=== PATIENT | male | born 1945 | race Caucasian/White ===

== ENCOUNTER 2025-05-23 16:29 | Observation (INO) ==
[~2025-05-23 16:29] MED LIST: SUPRANE IN ONE
[2025-05-23] MEDS ORDERED: ZOFRAN INJ 4 MG VIAL ONE (17:03)
[2025-05-23] MEDS ORDERED: MORPHINE SULFATE INJ 4 MG ONE (17:03)
[2025-05-23] MEDS ORDERED: NS 1,000 ML IV 1,000 ML ONE (17:03)
[2025-05-23] MEDS: MORPHINE SULFATE INJ 4 MG IVP ONE (17:07)
[2025-05-23] MEDS: ZOFRAN INJ 4 MG VIAL IVP ONE (17:07)
[2025-05-23] MEDS: NS 1,000 ML IV 1,000 ML IV ONE (17:09)
[2025-05-23 17:26] LABS: CREATININE 1.24 mg/dL (0.70-1.30); eGFR NON BLACK RACES 60 (>60)
[2025-05-23 17:28] LABS: MEAN PLATELET VOLUME 9.5 fL (7.4-11.0); RED CELL DISTRIBUTION WIDTH 13.7 % (11.6-16.5)
--- NOTE | 2025-05-23 18:33 | DR.H&P ---
H&P History & Physical for Day of: H&P Date: 05/23/25 Chief Complaint Chief Complaint: Acute onset of painful abdomen at umbilicus History of Present Illness History of Present Illness: 79-year-old male who was working on his barn and doing a lot of strenuous activity and had acute onset of abdominal pain in his umbilicus with a mass effect at the umbilicus which could not be reduced in the emergency room. CT scan consistent with incarcerated umbilical hernia. Very tender very painful. Patient has past medical history of hypertension, hyperlipidemia, GE reflux and some difficulty urinating. Past Medical History Past Medical History: Alzheimers, Dyslipidemia, GERD and Hypertension Additional Medical History: Some difficulty urinating Past Surgical History Surgical History: Ortho Surgery and Other Family History Family Medical History: Diabetes Mellitus, Cancer, [place], Coronary Artery Disease and Hypertension Social History Does patient currently use any type of tobacco product: No Have you used tobacco products in the last 12 months: No Type of Tobacco Use: None Does any household member use tobacco: No Alcohol Use: None Medications Home Medications: Home Medications Medication Instructions Recorded Confirmed Type clotrimazole 1 % topical cream 1 applic topical QDAY 0 05/23/25 05/23/25 History cyclobenzaprine 5 mg tablet 5 mg PO QPM PRN 05/23/25 0 05/23/25 History donepezil 5 mg tablet 5 mg PO QDAY 05/23/25 History isotretinoin 30 mg capsule 30 mg PO QDAY 05/23/2505/10 History levocetirizine 5 mg tablet 5 mg PO QDAY 05/23/2505/23 History meloxicam 15 mg tablet 15 mg PO QDAY 05/23/2505/23 History pantoprazole 40 mg tablet,delayed 40 mg PO BID 5 05/23/25 History release simvastatin 40 mg tablet 40 mg PO QPM 05/23/25 History tamsulosin 0.4 mg capsule 0.4 mg PO DAILY 05/23/2505/10 History Allergies Allergies Allergy/AdvReac Type Severity Reaction Status Date / Time No Known Allergies Allergy Verified 05/23/25 16:39 Labs 05/23/25 16:50 05/23/25 16:50 Labs: Laboratory WBC 9.4 X10^3/uL (3.6-10.0) 05/23/25 16:50 RBC 5.67 X10^6/uL (4.7-6.0) 05/23/25 16:50 Hgb 16.8 g/dL (13.5-18.0) 05/23/25 16:50 Hct 49.9 % (42.0-54.0) 05/23/25 16:50 MCV 88.0 fL (80.0-100.0) 05/23/25 16:50 MCH 29.6 pg (27.0-34.0) 05/23/25 16:50 MCHC 33.6 g/dL (33.0-35.0) 05/23/25 16:50 RDW 13.7 % (11.6-16.5) 05/23/25 16:50 Plt Count 167 X10^3/uL (150.0-450.0) 05/23/25 16:50 MPV 9.5 fL (7.4-11.0) 05/23/25 16:50 Neut % (Auto) 53.2 % (42.0-75.0) 05/23/25 16:50 Lymph % (Auto) 32.8 % (21.0-51.0) 05/23/25 16:50 [place] % (Auto) 8.6 % (0.0-13.0) 05/23/25 16:50 Eos % (Auto) 5.0 % (0.9-2.9) H 05/23/25 16:50 Baso % (Auto) 0.4 % (0.2-1.0) 05/23/25 16:50 Neut # (Auto) 5.0 x10^3/uL (2.2-4.8) H 05/23/25 16:50 Lymph # (Auto) 3.1 X10^3/uL (1.3-2.9) H 05/23/25 16:50 [place] # (Auto) 0.8 x10^3/uL (0.3-0.8) 05/23/25 16:50 Eos # (Auto) 0.5 x10^3/uL (0.0-0.2) H 05/23/25 16:50 Baso # (Auto) 0.0 X10^3/uL (0.0-0.1) 05/23/25 16:50 Absolute Nucleated RBC 0.1 /100WBC 05/23/25 16:50 Sodium 138 mmol/L (136-145) 05/23/25 16:50 Corrected Sodium TNP 05/23/25 16:50 Potassium 4.1 mmol/L (3.5-5.1) 05/23/25 16:50 Chloride 103 mmol/L (98-107) 05/23/25 16:50 Carbon Dioxide 28.0 mmol/L (21-32) 05/23/25 16:50 BUN 17 mg/dL (7-18) 05/23/25 16:50 Creatinine 1.24 mg/dL (0.70-1.30) 05/23/25 16:50 Est GFR (MDRD) Af Amer > 60 (>60) 05/23/25 16:50 Est GFR (MDRD) Non-Af 60 (>60) 05/23/25 16:50 Glucose 103 mg/dL (65-99) H 05/23/25 16:50 Calcium 9.0 mg/dL (8.5-10.1) 05/23/25 16:50 Corrected Calcium TNP 05/23/25 16:50 Total Bilirubin 0.50 mg/dL (0.2-1.0) 05/23/25 16:50 AST 28 Units/L (15-37) 05/23/25 16:50 ALT 28 Units/L (12-78) 05/23/25 16:50 Alkaline Phosphatase 90 Units/L (46-116) 05/23/25 16:50 Total Protein 8.4 g/dL (6.4-8.2) H 05/23/25 16:50 Albumin 4.3 g/dL (3.4-5.0) 05/23/25 16:50 Globulin 4.1 g/dL (2.5-4.5) 05/23/25 16:50 Albumin/Globulin Ratio 1.0 Ratio (1.1-2.1) L 05/23/25 16:50 Amylase 63 Units/L (25-115) 05/23/25 16:50 Lipase 36 Units/L (16-77) 05/23/25 16:50 Review of Systems Constitutional: See HPI Eyes: No Symptoms Reported ENT: No Symptoms Reported Cardiovascular: No Symptoms Reported Gastrointestinal: See HPI Genitourinary: See HPI Musculoskeletal: No Symptoms Reported Skin: No Symptoms Reported Neurological: No Symptoms Reported Physical Exam Vital Signs: Vital Signs Temperature 97.7 F Pulse Rate 79 Pulse Rate 91 Pulse Rate 87 Pulse Rate 84 Pulse Rate 93 Respiratory Rate 15 Respiratory Rate 23 Respiratory Rate 18 Respiratory Rate 25 Blood Pressure 142/88 Blood Pressure 152/99 Blood Pressure 187/108 O2 Sat by Pulse Oximetry 94 O2 Sat by Pulse Oximetry 94 O2 Sat by Pulse Oximetry 100 O2 Sat by Pulse Oximetry 100 O2 Sat by Pulse Oximetry 98 Oriented: Normal, Time, Person and Place Eyes: Normal Ear: Normal Nose: Normal Throat: Normal Respiratory: Clear Throughout Cardiovascular: Normal : Normal Auscultation: Bowel Sounds: Normal Palpation: Other (Mildly distended abdomen with incarcerated umbilical hernia with some dusky discoloration of the skin here.) Tenderness: Periumbilical (Very tender over this mass effect in the umbilicus in the periumbilical area. I cannot reduce it because of the significant pain he has encountered) Skin: Other (Dusky discoloration at the umbilicus with a very tender mass effect here approximately 3 cm in diameter) Musculoskeletal: Normal Psychiatric: Normal Mood Description: Calm Affect: Normal Speech Pattern: Clear and Appropriate Assessment/Plan (1) Incarcerated umbilical hernia: Status: Acute Plan: Patient has been n.p.o. since lunch. Will plan urgent repair of his incarcerated umbilical hernia. Most likely will require mesh to repair this. I discussed the procedure with the patient and his . They agreed to proceed. Understand the potential risk and benefits. (2) Hypertension: Status: Acute (3) Hyperlipidemia: Status: Acute (4) Gastroesophageal reflux disease: Status: Acute (5) Difficulty urinating: Status: Acute
[2025-05-23] MEDS: LR 1,000 ML IV 700 ML IV PRN (19:45)
[2025-05-23] MEDS: VERSED ONE (19:49)
[2025-05-23] MEDS: FENTANYL VIAL INJ 100 mcg ONE (19:49)
[2025-05-23] MEDS: LR 1,000 ML IV 1,000 ML IV ONE (19:52)
--- NOTE | 2025-05-23 19:57 | DR.ABDMALE ---
HPI Time seen Time Seen by Provider: 05/23/25 16:52 PCP Primary Care Physician: Zeina HPI comment HPI Comment: Patient had intense abdominal pain on his navel after lunch today. Patient states it has been getting worse since lunchtime. Patient states he feels like it radiates throughout the abdomen now. Denies any nausea or vomiting, diarrhea or constipation. Patient states he has been healthy and denies any fever Complaint Chief Complaint:: Patient states that after eating lunch today he started having intense abdominal pain around his navel. He states that the pain has progressively gotten worse. He describes the pains as shooting pains. Mode of arrival Mode of Arrival: Wheelchair Timing Onset of Chief Complaint: 05/23/25 PMH PMH Past Surgical History: Yes Surgical History: Ortho Surgery and Other Past Surgical History Comment: Neck Family History History of Family Medical Conditions: Yes Family Medical History: Diabetes Mellitus, Cancer, [place], Coronary Artery Disease and Hypertension Social History Does patient currently use any type of tobacco product: No Have you used tobacco products in the last 12 months: No Type of Tobacco Use: None Does any household member use tobacco: No Alcohol Use: None Do you use any recreational Drugs:: No Lives With: Family Lives Where: Home Infectious screening In the last 2 months have you had wt loss of >10#?: NO Have you had fever, night sweats or hemotysis?: No Have you traveled outside the country in the last 6 months?: No Isolation: Standard ROS Review of Systems Constitutional: No Symptoms Reported Eyes: No Symptoms Reported ENTM: No Symptoms Reported Respiratoy: No Symptoms Reported; negative Short of Breath or Wheezing Cardiovascular: No Symptoms Reported; negative Chest Pain, Edema, Palpitations or Syncope Gastrointestinal/Abdominal: See HPI and Abdominal Pain; negative Constipation, Diarrhea, Nausea or Vomiting Genitourinary: No Symptoms Reported Neurological: No Symptoms Reported Musculoskeletal: No Symptoms Reported Integumentary: No Symptoms Reported Hematologic/Lymphatic: No Symptoms Reported Endocrine: No Symptoms Reported Psychiatric: No Symptoms Reported All Other Systems: Reviewed and Negative PE Vital Signs Vital Signs: Temp Pulse Resp BP Pulse Ox O2 Del Method 05/23/25 19:45 76 25 H 98 05/23/25 19:31 86 44 H 05/23/25 19:31 164/98 05/23/25 19:30 81 26 H 05/23/25 19:15 73 20 98 05/23/25 19:00 78 23 96 05/23/25 19:00 134/90 05/23/25 18:49 129/87 05/23/25 18:49 83 18 98 05/23/25 18:45 76 95 05/23/25 18:30 79 26 H 97 05/23/25 18:29 81 17 92 L 05/23/25 18:29 187/112 05/23/25 18:15 100 H 90 L 05/23/25 18:02 82 94 L 05/23/25 17:45 79 22 94 L 05/23/25 17:30 79 15 94 L 05/23/25 17:30 142/88 05/23/25 17:23 91 H 23 94 L 05/23/25 17:07 18 05/23/25 17:00 87 100 05/23/25 17:00 152/99 05/23/25 16:59 84 100 05/23/25 16:35 97.7 F 93 H 25 H 187/108 98 Room Air General Limitations: No Limitations General Appearance: Alert and In No Apparent Distress Head Head Exam: Normal Inspection Eyes Eye exam: Normal Appearance ENT ENT Exam: Normal Exam Neck Neck Exam: Normal Inspection Chest Chest Inspection: Normal Inspection Respiratory Respiratory Exam: Normal Lung Sounds Bilat Cardiovascular Cardiovascular Exam: Regular Rate and Normal Rhythm Abdominal Exam Abdominal Exam: Normal Bowel Sounds, Soft, Tenderness (Tenderness on umbilical hernia), Guarding and Hernia (Umbilical hernia incarcerated and tender to palpation); negative Distention, Rebound or Rigidity Rectal Rectal Exam: Deferred Back Back Exam: Normal Inspection Extremeties Extremities Exam: Normal Inspection Exam: Male: Deferred Neurologic Neurological Exam: Alert and Oriented X3 Psychiatric Psychiatric Exam: Normal Affect and Normal Mood Skin Skin Exam: Warm, Dry, Intact and Normal Color COURSE Treatment Treatment: Incarcerated and likely strangulated umbilical hernia. Discussed with surgeon. Surgeon taking patient to the OR directly from the ER and he will admit to hospital after surgery. Consultation Consultation Comments: Discussed case and results of workup with Dr. Castaneda, surgeon, and he plans on taking patient to surgery as soon as he finishes the current procedure he is not. ROR Labs Reviewed Laboratory Results Reviewed?: Yes 05/23/25 16:50 05/23/25 16:50 Laboratory: WBC 9.4 X10^3/uL (3.6-10.0) 05/23/25 16:50 RBC 5.67 X10^6/uL (4.7-6.0) 05/23/25 16:50 Hgb 16.8 g/dL (13.5-18.0) 05/23/25 16:50 Hct 49.9 % (42.0-54.0) 05/23/25 16:50 MCV 88.0 fL (80.0-100.0) 05/23/25 16:50 MCH 29.6 pg (27.0-34.0) 05/23/25 16:50 MCHC 33.6 g/dL (33.0-35.0) 05/23/25 16:50 RDW 13.7 % (11.6-16.5) 05/23/25 16:50 Plt Count 167 X10^3/uL (150.0-450.0) 05/23/25 16:50 MPV 9.5 fL (7.4-11.0) 05/23/25 16:50 Neut % (Auto) 53.2 % (42.0-75.0) 05/23/25 16:50 Lymph % (Auto) 32.8 % (21.0-51.0) 05/23/25 16:50 [place] % (Auto) 8.6 % (0.0-13.0) 05/23/25 16:50 Eos % (Auto) 5.0 % (0.9-2.9) H 05/23/25 16:50 Baso % (Auto) 0.4 % (0.2-1.0) 05/23/25 16:50 Neut # (Auto) 5.0 x10^3/uL (2.2-4.8) H 05/23/25 16:50 Lymph # (Auto) 3.1 X10^3/uL (1.3-2.9) H 05/23/25 16:50 [place] # (Auto) 0.8 x10^3/uL (0.3-0.8) 05/23/25 16:50 Eos # (Auto) 0.5 x10^3/uL (0.0-0.2) H 05/23/25 16:50 Baso # (Auto) 0.0 X10^3/uL (0.0-0.1) 05/23/25 16:50 Absolute Nucleated RBC 0.1 /100WBC 05/23/25 16:50 Sodium 138 mmol/L (136-145) 05/23/25 16:50 Corrected Sodium TNP 05/23/25 16:50 Potassium 4.1 mmol/L (3.5-5.1) 05/23/25 16:50 Chloride 103 mmol/L (98-107) 05/23/25 16:50 Carbon Dioxide 28.0 mmol/L (21-32) 05/23/25 16:50 BUN 17 mg/dL (7-18) 05/23/25 16:50 Creatinine 1.24 mg/dL (0.70-1.30) 05/23/25 16:50 Est GFR (MDRD) Af Amer > 60 (>60) 05/23/25 16:50 Est GFR (MDRD) Non-Af 60 (>60) 05/23/25 16:50 Glucose 103 mg/dL (65-99) H 05/23/25 16:50 Calcium 9.0 mg/dL (8.5-10.1) 05/23/25 16:50 Corrected Calcium TNP 05/23/25 16:50 Total Bilirubin 0.50 mg/dL (0.2-1.0) 05/23/25 16:50 AST 28 Units/L (15-37) 05/23/25 16:50 ALT 28 Units/L (12-78) 05/23/25 16:50 Alkaline Phosphatase 90 Units/L (46-116) 05/23/25 16:50 Total Protein 8.4 g/dL (6.4-8.2) H 05/23/25 16:50 Albumin 4.3 g/dL (3.4-5.0) 05/23/25 16:50 Globulin 4.1 g/dL (2.5-4.5) 05/23/25 16:50 Albumin/Globulin Ratio 1.0 Ratio (1.1-2.1) L 05/23/25 16:50 Amylase 63 Units/L (25-115) 05/23/25 16:50 Lipase 36 Units/L (16-77) 05/23/25 16:50 Other Results Comments: CT abdomen and pelvis without contrast results not available at this time. Informed surgeon that this was taken so he can review when available. Opioid Opioid Risk Tool Total: 0 Total Score Risk Category: Low Risk Copyright: Gen PHELAN predicting aberrant behaviors Discharge Plan Diagnosis Discharge Problem: Incarcerated umbilical hernia, Strangulated umbilical hernia Discharge Plan Patient Disposition: ADMITTED INPATIENT Condition: Stable Prescriptions: No Action donepezil 5 mg tablet 5 mg PO QDAY meloxicam 15 mg tablet 15 mg PO QDAY simvastatin 40 mg tablet 40 mg PO QPM tamsulosin 0.4 mg capsule 0.4 mg PO DAILY pantoprazole 40 mg tablet,delayed release (DR/EC) 40 mg PO BID clotrimazole 1 % cream 1 applic TOPICAL QDAY cyclobenzaprine 5 mg tablet 5 mg PO QPM PRN isotretinoin 30 mg capsule 30 mg PO QDAY levocetirizine 5 mg tablet 5 mg PO QDAY Health Concerns: Post Hospitalization: new medications and changes needed to prevent readmission or further decline. Pt educated and given instructions on all concerns. Plan of Treatment: Continue with present treatment and follow up plan. Pt is to keep follow up appointment as instructed and take medications as ordered. Follow ups/Referrals Follow ups/Referrals: FROILAN FRAGOSO [Primary Care Provider, MEDICAL] - 3 days Instructions Stand Alone Forms: Find Help Web Site, Post Hospital Follow Up Care Print Language: SETSWANA
[2025-05-23] MEDS: ZOFRAN INJ 4 MG VIAL IVP PRN (20:00)
[2025-05-23] MEDS: PEPCID 20 MG VIAL IVP PRN (20:00)
[2025-05-23] MEDS: DIPRIVAN VIAL 20 ML ONE (20:02)
[2025-05-23] MEDS: ZOFRAN INJ 4 MG VIAL ONE (20:02)
[2025-05-23] MEDS: BRIDION ONE (20:02)
[2025-05-23] MEDS: TORADOL 30 MG VIAL ONE (20:02)
[2025-05-23] MEDS: OFIRMEV IV 1000 MG VIAL 1,000 MG/100 ML VIAL IV ONE (20:02)
[2025-05-23] MEDS: ZEMURON 100 MG VIAL ONE (20:02)
[2025-05-23] MEDS: VERSED IVP PRN (20:04)
[2025-05-23] MEDS: PEPCID 20 MG VIAL ONE (20:08)
--- NOTE | 2025-05-23 20:09 | EKG ---
Test Reason : pre-op surgery Blood Pressure : */* mmHG Vent. Rate : 82 BPM Atrial Rate : 82 BPM P-R Int : 170 ms QRS Dur : 90 ms QT Int : 358 ms P-R-T Axes : 39 -4 27 degrees QTc Int : 418 ms Normal sinus rhythm Minimal voltage criteria for LVH, may be normal variant ( R in aVL ) Borderline ECG No previous ECGs available Confirmed by Jerry Abrams MD ([id number]) on 05/24/2025 12:57:54 AM Referred By: Confirmed By: Jerry Abrams MD
[2025-05-23 20:10] LABS: BLOOD/HEMOGLOBIN,URINE NEGATIVE (NEGATIVE); LEUKOCYTE ESTERASE ,URINE NEGATIVE (NEGATIVE); NITRITES,URINE NEGATIVE (NEGATIVE)
[2025-05-23] MEDS: ANCEF VIAL 1 GRAM IV PRN (20:10)
[2025-05-23] MEDS: ANCEF VIAL 1 GRAM ONE (20:12)
[2025-05-23] MEDS: NS 100 ML IV 100 ML ONE (20:12)
[2025-05-23 20:14] LABS: APPEARANCE,URINE CLEAR (CLEAR)
[2025-05-23] MEDS: ZEMURON 100 MG VIAL IVP PRN (20:17)
[2025-05-23] MEDS: DIPRIVAN VIAL 170 ML IVP PRN (20:17)
[2025-05-23] MEDS: FENTANYL VIAL INJ 100 mcg IVP PRN (20:17)
[2025-05-23 20:18] LABS: SQUAMOUS EPITHELIAL CELL,UR NEGATIVE /HPF (NEGATIVE)
--- NOTE | 2025-05-23 20:20 | CT ---
EXAM: CT ABDOMEN AND PELVIS WITHOUT INTRAVENOUS CONTRAST HISTORY: Pain after eating lunch. TECHNIQUE: Spiral axial CT images are obtained through the abdomen and pelvis without the administration of intravenous contrast. Additional coronal and sagittal reformatted images are reconstructed. COMPARISON: None available. FINDINGS: GASTROINTESTINAL TRACT: There is a small hiatal hernia, measuring approximately 3.8 cm AP by 2.4 cm transverse by 2.9 cm CC. Axial image 20; coronal image 29. There is an approximately 2.4 cm transverse by 2.5 cm CC by 2.2 cm AP umbilical hernia containing a slightly thickened fluid-filled small bowel loop; cannot rule out early bowel strangulation in the appropriate clinical setting. Axial image 62; sagittal image 33. There is resultant high-grade small bowel obstruction at the level of the umbilical hernia, with 3.3 cm dilated fluid-filled small bowel loops proximal to the hernia and completely collapsed small bowel loops distal to the hernia. No evidence for pneumatosis intestinalis, portal venous air or free intraperitoneal air. Diffuse colonic diverticulosis, especially severe in the sigmoid region, without CT evidence for acute diverticulitis. No evidence for bowel herniation, bowel obstruction, or colitis. A normal-appearing appendix is seen. GENITOURINARY SYSTEM: The kidneys are unremarkable. There is no ureteral calculus or stigmata of obstructive uropathy. The urinary bladder is grossly unremarkable for a non-dedicated exam. BILIARY SYSTEM: There is cholelithiasis, consistent with sequela of chronic cholecystitis. Consider follow-up evaluation with HIDA scan to rule out cystic duct obstruction and acute cholecystitis as clinically warranted. CT ABDOMEN: Aortoiliac atherosclerotic disease, without aneurysm formation. The liver, spleen, pancreas, adrenal glands, and inferior vena cava are within normal limits for a noncontrast CT scan. There is no intra-abdominal or retroperitoneal lymphadenopathy, free fluid, or free air seen. No abdominal herniation is noted. CT PELVIS: No pelvic sidewall or inguinal lymphadenopathy is seen. No inguinal herniation is noted. No free fluid or free air is seen. BONES AND JOINTS: Severe multilevel DDD is seen in the distal thoracic spine marked by disc space narrowings and anterior beaking +/- bridging marginal osteophytosis. L4/5: Mild DDD marked by posterior disc space narrowing; approximately 4.4 mm (grade 1) spondylolisthesis secondary to severe bilateral hypertrophic facet joint DJD, with resultant bony neuroforaminal stenosis, lateral recess stenosis, and spinal canal stenosis with potential for L4 and L5 nerve root impingements. Sagittal image 30-45; axial image 53-57. L5/S1: Severe DDD marked by severe disc space narrowing, endplate sclerosis, and vacuum disc phenomenon. The visualized bony structures are otherwise within normal limits. LUNG BASES: There is an approximately 4.9 mm pleural-based noncalcified nodule in the anterior aspect of the superior segment of the right lower lobe in keeping with an intrapulmonary lymph node (axial image 3, lung windows). The lung bases are otherwise clear. There is severe coronary atherosclerosis (LAD). There is mild cardiomegaly with four-chamber enlargement. There is a partially imaged, at least 4.3 cm diameter, fusiform ascending thoracic aortic aneurysm. IMPRESSION: 1. Small hiatal hernia, measuring approximately 3.8 cm AP by 2.4 cm transverse by 2.9 cm CC. Axial image 20; coronal image 29. 2. Approximately 2.4 cm transverse by 2.5 cm CC by 2.2 cm AP umbilical hernia containing a slightly thickened fluid-filled small bowel loop; cannot rule out early bowel strangulation in the appropriate clinical setting. Axial image 62; sagittal image 33. 3. Resultant high-grade small bowel obstruction at the level of the umbilical hernia, with 3.3 cm dilated fluid-filled small bowel loops proximal to the hernia and completely collapsed small bowel loops distal to the hernia. 4. Diffuse colonic diverticulosis, especially severe in the sigmoid region, without CT evidence for acute diverticulitis. 5. No evidence for pneumatosis intestinalis, appendicitis, or colitis. 6. Cholelithiasis, consistent with sequela of chronic cholecystitis. Consider follow-up evaluation with HIDA scan to rule out cystic duct obstruction and acute cholecystitis as clinically warranted. 7. No evidence for ureteral stones or obstructive uropathy. 8. No free fluid, free air, mass lesions, or lymphadenopathy seen. 9. L4/5: Mild DDD marked by posterior disc space narrowing; approximately 4.4 mm (grade 1) spondylolisthesis secondary to severe bilateral hypertrophic facet joint DJD, with resultant bony neuroforaminal stenosis, lateral recess stenosis, and spinal canal stenosis with potential for L4 and L5 nerve root impingements. Sagittal image 30-45; axial image 53-57. 10. L5/S1: Severe DDD marked by severe disc space narrowing, endplate sclerosis, and vacuum disc phenomenon. THIS IS AN ELECTRONICALLY VERIFIED FINAL REPORT 05/23/2025 8:08 PM - Electronically signed by Bernard Bonilla MD
[2025-05-23] MEDS: MARCAINE/EPINEPHRINE ONE (20:23)
[2025-05-23] MEDS: OFIRMEV IV 1000 MG VIAL 1,000 MG/100 ML VIAL IV PRN (20:30)
[2025-05-23] MEDS: TORADOL 30 MG VIAL IVP PRN (20:31)
[2025-05-23] MEDS: BRIDION IVP PRN (20:39)
[2025-05-23] MEDS ORDERED: CYCLOBENZAPRINE 5 MG PO PRN (20:54)
--- NOTE | 2025-05-23 21:00 | OR.IMMED ---
IMMEDIATE POST-OP NOTE Immediate Post-Op Note Date of surgery/procedure: 05/23/25 Pre-Op Diagnosis: incarcerated /strangulated umbilical hernia Post-Op Diagnosis: same Procedure: Open repair of incarcerated umbilical hernia with mesh Description of Procedure: dictated Surgeon/Adoption Specialist: Leonel Findings: as above , defect 2 cm in diameter Specimens Removed: hernia sac Estimated Blood Loss: < 20 cc Complications: none Progress Notes: Extubated taken the PACU. Will go to the floor. Begin a diet and control pain , probably discharge home in the morning
[2025-05-23] MEDS: ZOCOR TAB 40 MG PO SCH (23:00)
[2025-05-23] MEDS: LR 1,000 ML IV 1,000 ML IV SCH (23:00)
[2025-05-23] MEDS: PROTONIX TAB 40 MG PO SCH (23:00)
[2025-05-23] MEDS: PERCOCET TAB 5/325 MG PO PRN (23:00)
[2025-05-23] MEDS: FLEXERIL TAB 10 MG PO PRN (23:33)
[2025-05-24 03:12] VITALS: BMI 26.7
[2025-05-24 08:26] VITALS: BP 145/90; PULSE 72; RESP 21; TEMP 97.2; O2SAT 96
[2025-05-24] MEDS: MORPHINE SULFATE INJ 2 MG INJ IVP PRN (08:52)
[2025-05-24] MEDS: LOVENOX INJ 40 MG SYR SC SCH (08:55)
[2025-05-24] MEDS: FLOMAX PO SCH (08:56)
[2025-05-24] MEDS: ARICEPT TAB 5 MG PO SCH (08:56)
[2025-05-24] MEDS: LOTRIMIN CREAM TOP SCH (08:56)
[2025-05-24] MEDS: MOBIC TAB 15 MG PO SCH (08:56)
[2025-05-24] MEDS: ISOTRETINOIN 30 MG PO SCH (08:57)
--- NOTE | 2025-05-24 11:26 | W.DIS.FURT ---
Summary of Discharge Discharge Summary of Date Date of Exam: 05/24/25 Admission Date Date of Admission: 05/23/25 Admission Diagnosis Patient Problems (Updated 05/23/25 @ 20:00 by Mateusz Hancock) Strangulated umbilical hernia (Acute) K42.0 Incarcerated umbilical hernia (Acute) K42.0 Hospital Course: 79-year-old male who presented with acute onset of abdominal pain secondary to a strangulated umbilical hernia. He underwent uncomplicated repair of that and is doing well. He be discharged today on his usual medications plus Percocet, 5 mg tablets, 1 every 6 hours as needed pain. He will follow-up with me in 1 week. He may shower in 3 days. Encourage ambulation. Vital Signs: Vital Signs (72 hours) 05/23/25 16:35 05/23/25 16:59 05/23/25 17:00 Temperature 97.7 F Pulse Rate 93 H 84 Pulse Rate [Left Brachial] Respiratory Rate 25 H Blood Pressure 187/108 152/99 Blood Pressure [Left Arm] O2 Sat by Pulse Oximetry 98 100 Oxygen Delivery Method Room Air Oxygen Flow Rate 05/23/25 17:00 05/23/25 17:07 05/23/25 17:23 Temperature Pulse Rate 87 91 H Pulse Rate [Left Brachial] Respiratory Rate 18 23 Blood Pressure Blood Pressure [Left Arm] O2 Sat by Pulse Oximetry 100 94 L Oxygen Delivery Method Oxygen Flow Rate 05/23/25 17:30 05/23/25 17:30 05/23/25 17:45 Temperature Pulse Rate 79 79 Pulse Rate [Left Brachial] Respiratory Rate 15 22 Blood Pressure 142/88 Blood Pressure [Left Arm] O2 Sat by Pulse Oximetry 94 L 94 L Oxygen Delivery Method Oxygen Flow Rate 05/23/25 18:02 05/23/25 18:15 05/23/25 18:29 Temperature Pulse Rate 82 100 H Pulse Rate [Left Brachial] Respiratory Rate Blood Pressure 187/112 Blood Pressure [Left Arm] O2 Sat by Pulse Oximetry 94 L 90 L Oxygen Delivery Method Oxygen Flow Rate 05/23/25 18:29 05/23/25 18:30 05/23/25 18:45 Temperature Pulse Rate 81 79 76 Pulse Rate [Left Brachial] Respiratory Rate 17 26 H Blood Pressure Blood Pressure [Left Arm] O2 Sat by Pulse Oximetry 92 L 97 95 Oxygen Delivery Method Oxygen Flow Rate 05/23/25 18:49 05/23/25 18:49 05/23/25 19:00 Temperature Pulse Rate 83 Pulse Rate [Left Brachial] Respiratory Rate 18 Blood Pressure 129/87 134/90 Blood Pressure [Left Arm] O2 Sat by Pulse Oximetry 98 Oxygen Delivery Method Oxygen Flow Rate 05/23/25 19:00 05/23/25 19:15 05/23/25 19:30 Temperature Pulse Rate 78 73 81 Pulse Rate [Left Brachial] Respiratory Rate 23 20 26 H Blood Pressure Blood Pressure [Left Arm] O2 Sat by Pulse Oximetry 96 98 Oxygen Delivery Method Oxygen Flow Rate 05/23/25 19:31 05/23/25 19:31 05/23/25 19:45 Temperature Pulse Rate 86 76 Pulse Rate [Left Brachial] Respiratory Rate 44 H 25 H Blood Pressure 164/98 Blood Pressure [Left Arm] O2 Sat by Pulse Oximetry 98 Oxygen Delivery Method Oxygen Flow Rate 05/23/25 19:50 05/23/25 20:52 05/23/25 20:57 Temperature 97 F L Pulse Rate 75 94 H 87 Pulse Rate [Left Brachial] Respiratory Rate 16 18 18 Blood Pressure 158/97 153/79 139/75 Blood Pressure [Left Arm] O2 Sat by Pulse Oximetry 95 98 99 Oxygen Delivery Method Room Air Aerosol Face Tent Aerosol Face Tent Oxygen Flow Rate 05/23/25 21:02 05/23/25 21:07 05/23/25 21:12 Temperature Pulse Rate 90 81 83 Pulse Rate [Left Brachial] Respiratory Rate 18 18 18 Blood Pressure 131/78 132/81 137/81 Blood Pressure [Left Arm] O2 Sat by Pulse Oximetry 99 98 97 Oxygen Delivery Method Aerosol Face Tent Nasal Cannula Room Air Oxygen Flow Rate 05/23/25 21:17 05/23/25 21:22 05/23/25 21:25 Temperature 98.2 F Pulse Rate 80 81 Pulse Rate [Left Brachial] 72 Respiratory Rate 18 18 17 Blood Pressure 144/83 143/86 Blood Pressure [Left Arm] 132/81 O2 Sat by Pulse Oximetry 98 98 92 L Oxygen Delivery Method Room Air Room Air Oxygen Flow Rate 05/23/25 21:30 05/23/25 21:40 05/23/25 21:55 Temperature 98.0 F Pulse Rate Pulse Rate [Left Brachial] 70 69 Respiratory Rate 17 18 Blood Pressure Blood Pressure [Left Arm] 129/75 124/73 O2 Sat by Pulse Oximetry 91 L 93 L Oxygen Delivery Method Room Air Oxygen Flow Rate 05/23/25 22:10 05/23/25 22:25 05/23/25 23:00 Temperature 98.2 F Pulse Rate Pulse Rate [Left Brachial] 71 72 Respiratory Rate 18 18 18 Blood Pressure Blood Pressure [Left Arm] 116/61 109/60 O2 Sat by Pulse Oximetry 91 L 93 L Oxygen Delivery Method Oxygen Flow Rate 05/23/25 23:25 05/24/25 00:00 05/24/25 00:00 Temperature 98.4 F 98.4 F Pulse Rate Pulse Rate [Left Brachial] 69 69 Respiratory Rate 17 17 17 Blood Pressure Blood Pressure [Left Arm] 129/80 129/80 O2 Sat by Pulse Oximetry 96 96 Oxygen Delivery Method Nasal Cannula Oxygen Flow Rate 2 05/24/25 00:25 05/24/25 01:25 05/24/25 02:25 Temperature 98.1 F 97.8 F Pulse Rate Pulse Rate [Left Brachial] 74 73 75 Respiratory Rate 18 18 18 Blood Pressure Blood Pressure [Left Arm] 117/62 116/66 123/75 O2 Sat by Pulse Oximetry 94 L 92 L 94 L Oxygen Delivery Method Oxygen Flow Rate 05/24/25 04:00 05/24/25 08:00 05/24/25 08:52 Temperature 98.1 F 97.2 F L Pulse Rate Pulse Rate [Left Brachial] 65 72 Respiratory Rate 19 21 21 Blood Pressure Blood Pressure [Left Arm] 120/73 145/90 O2 Sat by Pulse Oximetry 95 96 Oxygen Delivery Method Nasal Cannula Nasal Cannula Oxygen Flow Rate 2 2 05/24/25 09:09 Temperature Pulse Rate Pulse Rate [Left Brachial] Respiratory Rate Blood Pressure Blood Pressure [Left Arm] O2 Sat by Pulse Oximetry Oxygen Delivery Method Room Air Oxygen Flow Rate Labs: Laboratory Last Values WBC 9.4 X10^3/uL (3.6-10.0) 05/23/25 16:50 RBC 5.67 X10^6/uL (4.7-6.0) 05/23/25 16:50 Hgb 16.8 g/dL (13.5-18.0) 05/23/25 16:50 Hct 49.9 % (42.0-54.0) 05/23/25 16:50 MCV 88.0 fL (80.0-100.0) 05/23/25 16:50 MCH 29.6 pg (27.0-34.0) 05/23/25 16:50 MCHC 33.6 g/dL (33.0-35.0) 05/23/25 16:50 RDW 13.7 % (11.6-16.5) 05/23/25 16:50 Plt Count 167 X10^3/uL (150.0-450.0) 05/23/25 16:50 MPV 9.5 fL (7.4-11.0) 05/23/25 16:50 Neut % (Auto) 53.2 % (42.0-75.0) 05/23/25 16:50 Lymph % (Auto) 32.8 % (21.0-51.0) 05/23/25 16:50 [place] % (Auto) 8.6 % (0.0-13.0) 05/23/25 16:50 Eos % (Auto) 5.0 % (0.9-2.9) H 05/23/25 16:50 Baso % (Auto) 0.4 % (0.2-1.0) 05/23/25 16:50 Neut # (Auto) 5.0 x10^3/uL (2.2-4.8) H 05/23/25 16:50 Lymph # (Auto) 3.1 X10^3/uL (1.3-2.9) H 05/23/25 16:50 [place] # (Auto) 0.8 x10^3/uL (0.3-0.8) 05/23/25 16:50 Eos # (Auto) 0.5 x10^3/uL (0.0-0.2) H 05/23/25 16:50 Baso # (Auto) 0.0 X10^3/uL (0.0-0.1) 05/23/25 16:50 Absolute Nucleated RBC 0.1 /100WBC 05/23/25 16:50 Sodium 138 mmol/L (136-145) 05/23/25 16:50 Corrected Sodium TNP 05/23/25 16:50 Potassium 4.1 mmol/L (3.5-5.1) 05/23/25 16:50 Chloride 103 mmol/L (98-107) 05/23/25 16:50 Carbon Dioxide 28.0 mmol/L (21-32) 05/23/25 16:50 BUN 17 mg/dL (7-18) 05/23/25 16:50 Creatinine 1.24 mg/dL (0.70-1.30) 05/23/25 16:50 Est GFR (MDRD) Af Amer > 60 (>60) 05/23/25 16:50 Est GFR (MDRD) Non-Af 60 (>60) 05/23/25 16:50 Glucose 103 mg/dL (65-99) H 05/23/25 16:50 Calcium 9.0 mg/dL (8.5-10.1) 05/23/25 16:50 Corrected Calcium TNP 05/23/25 16:50 Total Bilirubin 0.50 mg/dL (0.2-1.0) 05/23/25 16:50 AST 28 Units/L (15-37) 05/23/25 16:50 ALT 28 Units/L (12-78) 05/23/25 16:50 Alkaline Phosphatase 90 Units/L (46-116) 05/23/25 16:50 Total Protein 8.4 g/dL (6.4-8.2) H 05/23/25 16:50 Albumin 4.3 g/dL (3.4-5.0) 05/23/25 16:50 Globulin 4.1 g/dL (2.5-4.5) 05/23/25 16:50 Albumin/Globulin Ratio 1.0 Ratio (1.1-2.1) L 05/23/25 16:50 Amylase 63 Units/L (25-115) 05/23/25 16:50 Lipase 36 Units/L (16-77) 05/23/25 16:50 Specimen Type Clean catch urine 05/23/25 19:56 Urine Color Yellow (YELLOW) 05/23/25 19:56 Urine Appearance Clear (CLEAR) 05/23/25 19:56 Urine pH 6.0 (5.0 - 8.0) 05/23/25 19:56 Ur Specific [place] 1.010 (1.000-1.030) 05/23/25 19:56 Urine Protein 1+ (NEGATIVE) 05/23/25 19:56 Urine Glucose (UA) Negative (NEGATIVE) 05/23/25 19:56 Urine Ketones Negative (NEGATIVE) 05/23/25 19:56 Urine Blood Negative (NEGATIVE) 05/23/25 19:56 Urine Nitrite Negative (NEGATIVE) 05/23/25 19:56 Urine Bilirubin Negative (NEGATIVE) 05/23/25 19:56 Urine Urobilinogen Normal (NORMAL) 05/23/25 19:56 Ur Leukocyte Esterase Negative (NEGATIVE) 05/23/25 19:56 Urine RBC 0-2 /HPF (0-3) 05/23/25 19:56 Urine WBC 0-2 /HPF (0-5) 05/23/25 19:56 Ur Squamous Epith Cells Negative /HPF (NEGATIVE) 05/23/25 19:56 Urine Bacteria Negative /HPF (NEGATIVE) 05/23/25 19:56 Ur Culture Indicated? No/not indicated 05/23/25 19:56 Reason For Visit: INCARCERTATED UMBILICAL HERNIA Discharge Date Discharge Date: 05/24/25 Discharge Diagnosis All Active Problems (Updated 05/23/25 @ 20:00 by Mateusz Hancock) Strangulated umbilical hernia (Acute) Difficulty urinating (Acute) Gastroesophageal reflux disease (Acute) Hyperlipidemia (Acute) Hypertension (Acute) Incarcerated umbilical hernia (Acute) Plan of Treatment: Continue with present treatment and follow up plan. Pt is to keep follow up appointment as instructed and take medications as ordered. Discharge Medications Discharge Medications: No Known Allergies Allergy (Verified 05/23/25 16:39) CONTINUE taking the following medications clotrimazole 1 % topical cream 1 applic topical QDAY 05/23/25 [History] cyclobenzaprine 5 mg tablet 5 mg PO QPM PRN 05/23/25 [History] donepezil 5 mg tablet 5 mg PO QDAY 05/23/25 [History] isotretinoin 30 mg capsule 30 mg PO QDAY 05/23/25 [History] levocetirizine 5 mg tablet 5 mg PO QDAY 05/23/25 [History] meloxicam 15 mg tablet 15 mg PO QDAY 05/23/25 [History] pantoprazole 40 mg tablet,delayed release 40 mg PO BID 05/23/25 [History] simvastatin 40 mg tablet 40 mg PO QPM 05/23/25 [History] tamsulosin 0.4 mg capsule 0.4 mg PO DAILY 05/23/25 [History] Percocet, 5 mg tablets, 1 every 6 hours PRN Pain, #20 Discharge Disposition Assessment: see hospital course Discharge Plan Discharge Plan Hospital Course: 79-year-old male who presented with acute onset of abdominal pain secondary to a strangulated umbilical hernia. He underwent uncomplicated repair of that and is doing well. He be discharged today on his usual medications plus Percocet, 5 mg tablets, 1 every 6 hours as needed pain. He will follow-up with me in 1 week. He may shower in 3 days. Encourage ambulation. Patient Disposition: 01 HOME, SELF-CARE Condition: Stable Health Concerns: Post Hospitalization: new medications and changes needed to prevent readmission or further decline. Pt educated and given instructions on all concerns. Care Plan Goals: Problem: Pain/Alteration in Comfort Goal: Improve/ Resolve Pain; Achieve Pain Tolerance Instructions: Take pain medications as prescribed. Contact your primary care provider if your pain is unrelieved or worsens. Follow up with primary care provider as directed. Plan of Treatment: Continue with present treatment and follow up plan. Pt is to keep follow up appointment as instructed and take medications as ordered. Assessment: see hospital course Prescription drug monitoring program results: PDMP was not reviewed Prescriptions: New oxycodone-acetaminophen [Percocet] 5-325 mg tablet 1 tab PO Q6H MDD 4 PRNQty: 20 0RF Continued donepezil 5 mg tablet 5 mg PO QDAY meloxicam 15 mg tablet 15 mg PO QDAY simvastatin 40 mg tablet 40 mg PO QPM tamsulosin 0.4 mg capsule 0.4 mg PO DAILY pantoprazole 40 mg tablet,delayed release (DR/EC) 40 mg PO BID clotrimazole 1 % cream 1 applic TOPICAL QDAY cyclobenzaprine 5 mg tablet 5 mg PO QPM PRN isotretinoin 30 mg capsule 30 mg PO QDAY levocetirizine 5 mg tablet 5 mg PO QDAY Orders to Discharge Patient Discharge Orders: Discharge (Routine); Ordered 05/24/25 Ordered By: Brad Castaneda Follow ups/Referrals Follow ups/Referrals: FROILAN FRAGOSO [Primary Care Provider, MEDICAL] - 05/30/25 11:15 am Brad Castaneda [STAFF PHYSICIAN, Unknown] - 06/05/25 11:45 am Instructions Instructions: Umbilical Hernia, Adult, Open Hernia Repair, Adult Stand Alone Forms: Excuse From Work or School, Find Help Web Site, Post Hospital Follow Up Care Print Language: DOMINICAN
--- NOTE | 2025-05-26 23:50 | DR.OPNOTE ---
OP NOTE Pre-Op Diagnosis: Incarcerated umbilical hernia Post-Op Diagnosis: Same Procedure Date Date Of Procedure: 05/23/25 Procedure: PROCEDURE: Incarcerated umbilical hernia NARRATIVE: Patient taken the operative suite and placed in supine position. G eneral endotracheal anesthesia induced. The entire abdomen was prepped and draped in sterile fashion. Timeout for the procedure obtained. Curvilinear incision made below the umbilicus in the midline and dissection carried down through the subcutaneous tissue. Hemostat was used to encompass the umbilicus which was from the defect with a 15 knife blade and at this point all the contents of the hernia were reduced back in the abdominal cavity. A 4 inch diameter [place] mesh was placed through the defect and smoothed out against peritoneal surface. The surrounding Prolene tails were sutured to the surrounding fascia with interrupted 2-0 Prolene suture. Umbilicus approximated to the repair with 3-0 Vicryl suture. Subcutaneous tissue closed with running 3-0 Vicryl suture. Skin closed with running 4 Vicryl subcutaneous suture. Steri strips applied and the patient tolerated this very well. Patient extubated and taken to PACU in good condition. Type of Anesthesia: Local (0.5% Marcaine) and General Anesthetic w/ETT Findings: Incarcerated umbilical hernia Type of Fluids Used:: Lactated Ringers EBL: minimal Complications:: none Needle/Sponge Count:: correct Disposition/Condition: Pt. tolerated procedure without difficulty. Extubated in the OR and taken to PACU in stable condition.
== END 2025-05-24 12:15 | disposition home or self-care (01) ==
LOC: ER 16:29 → MED/SURG 16:29
PROVIDERS: ADMIT Surgery; ATTEND Surgery
DX: K57.30 Diverticulosis of large intestine without perforation or abscess without bleeding; K80.10 Calculus of gallbladder with chronic cholecystitis without obstruction; K56.690 Other partial intestinal obstruction; K21.9 Gastro-esophageal reflux disease without esophagitis; R39.198 Other difficulties with micturition; E78.5 Hyperlipidemia, unspecified; I10 Essential (primary) hypertension; G30.8 Other Alzheimer's disease; Z01.810 Encounter for preprocedural cardiovascular examination; K42.0 Umbilical hernia with obstruction, without gangrene